=== PATIENT | female | born 1985 | race Caucasian/White ===

== ENCOUNTER 2017-05-13 22:48 | Emergency (ER) | payer BC, OTHER ==
[~2017-05-13] VITALS: Ht 167.6 cm; Wt 99.8 kg
--- NOTE | 2017-05-13 23:03 | PHYS DOC ---
Adult General Chief Complaint Chief Complaint: HYPERTENSION HPI HPI Patient is a 32 year old female who presents with headache, she states this started 2 nights ago is been pretty constant. It is different than her normal headaches. She states on the right side is constant about a 5 out of 10 and occasionally it gets sharp and stabbing. She states she was told she had fluid behind her left ear partially week ago. She feels like it could be sinus congestion and she's been taking Sudafed without any improvement. She's also tried Motrin and Tylenol. She took her blood pressure earlier is 168/119, she denies a history of high blood pressure. She denies any dizziness, nausea, vomiting, neck stiffness, fevers, chills, chest pain, she denies any focal neurological deficits such as weakness in her arms or legs. Review of Systems Review of Systems Constitutional: Denies fever or chills [] Eyes: Denies change in visual acuity, redness, or eye pain [] HENT: Denies nasal congestion or sore throat [] Respiratory: Denies cough or shortness of breath [] Cardiovascular: No additional information not addressed in HPI [] GI: Denies abdominal pain, nausea, vomiting, bloody stools or diarrhea [] : Denies dysuria or hematuria [] Musculoskeletal: Denies back pain or joint pain [] Integument: Denies rash or skin lesions [] Neurologic: Denies headache, focal weakness or sensory changes [] Endocrine: Denies polyuria or polydipsia [] Current Medications Current Medications Current Medications Medications (Trade) Dose Ordered Sig/Luis A Start Time Stop Time Status Last Admin Dose Admin Diphenhydramine HCl (Benadryl) 50 mg 1X ONCE 05/14/17 01:30 05/14/17 01:31 DC 05/14/17 01:26 50 MG Methylprednisolone Sodium Succinate (SOLU-Medrol 125MG VIAL) 125 mg 1X ONCE 05/14/17 02:15 05/14/17 02:16 DC 05/14/17 02:00 125 MG Promethazine HCl 12.5 mg/Sodium Chloride 50.5 ml @ 151.5 mls/ hr PRN Q6HRS PRN 05/14/17 00:00 05/14/17 01:26 151.5 MLS/HR Allergies Allergies Allergies Coded Allergies Type Severity Reaction Last Updated Verified Penicillins Allergy Intermediate Itching 05/14/17 Yes Physical Exam Physical Exam Constitutional: Well developed, well nourished, no acute distress, non-toxic appearance. [] HENT: Normocephalic, atraumatic, bilateral external ears normal, oropharynx moist, no oral exudates, nose normal. [] Eyes: PERRLA, EOMI, conjunctiva normal, no discharge. [] Neck: Normal range of motion, no tenderness, supple, no stridor. [] Cardiovascular:Heart rate regular rhythm, no murmur [] Lungs & Thorax: Bilateral breath sounds clear to auscultation [] Abdomen: Bowel sounds normal, soft, no tenderness, no masses, no pulsatile masses. [] Skin: Warm, dry, no erythema, no rash. [] Back: No tenderness, no CVA tenderness. [] Extremities: No tenderness, no cyanosis, no clubbing, ROM intact, no edema. [] Neurologic: Alert and oriented X 3, normal motor function, normal sensory function, no focal deficits noted. [] Psychologic: Affect normal, judgement normal, mood normal. [] Current Patient Data Vital Signs Vital Signs Date Time Temp Pulse Resp B/P (MAP) Pulse Ox O2 Delivery O2 Flow Rate FiO2 05/13/17 23:32 98.1 85 23 148/88 (108) 98 Room Air 98.1 Lab Values Laboratory Tests Test 05/13/17 23:35 05/14/17 01:25 White Blood Count 12.6 x10^3/uL (4.0-11.0) H Red Blood Count 4.70 x10^6/uL (3.50-5.40) Hemoglobin 12.6 g/dL (12.0-15.5) Hematocrit 38.0 % (36.0-47.0) Mean Corpuscular Volume 81 fL (79-100) Mean Corpuscular Hemoglobin 27 pg (25-35) Mean Corpuscular Hemoglobin Concent 33 g/dL (31-37) Red Cell Distribution Width 14.7 % (11.5-14.5) H Platelet Count 463 x10^3/uL (140-400) H Neutrophils (%) (Auto) 54 % (31-73) Lymphocytes (%) (Auto) 37 % (24-48) Monocytes (%) (Auto) 6 % (0-9) Eosinophils (%) (Auto) 2 % (0-3) Basophils (%) (Auto) 1 % (0-3) Neutrophils # (Auto) 6.8 x10^3uL (1.8-7.7) Lymphocytes # (Auto) 4.7 x10^3/uL (1.0-4.8) Monocytes # (Auto) 0.8 x10^3/uL (0.0-1.1) Eosinophils # (Auto) 0.2 x10^3/uL (0.0-0.7) Basophils # (Auto) 0.1 x10^3/uL (0.0-0.2) Sodium Level 140 mmol/L (136-145) Potassium Level 3.5 mmol/L (3.5-5.1) Chloride Level 104 mmol/L (98-107) Carbon Dioxide Level 26 mmol/L (21-32) Anion Gap 10 (6-14) Blood Urea Nitrogen 10 mg/dL (7-20) Creatinine 0.7 mg/dL (0.6-1.0) Estimated GFR (Cockcroft-Gault) 96.4 Glucose Level 111 mg/dL (70-99) H Calcium Level 9.2 mg/dL (8.5-10.1) Magnesium Level 1.9 mg/dL (1.8-2.4) Total Bilirubin 0.1 mg/dL (0.2-1.0) L Direct Bilirubin < 0.1 mg/dL (0.0-0.2) Aspartate Amino Transferase (AST) 15 U/L (15-37) Alanine Aminotransferase (ALT) 20 U/L (14-59) Alkaline Phosphatase 101 U/L (46-116) SU-Zpm-L-Type Natriuretic Peptide 49 pg/mL (0-124) Total Protein 7.4 g/dL (6.4-8.2) Albumin 3.7 g/dL (3.4-5.0) Lipase 165 U/L (73-393) Thyroid Stimulating Hormone (TSH) 4.113 uIU/mL (0.358-3.74) H Urine Collection Type Unknown Urine Color Yellow Urine Clarity Clear Urine pH 6.0 Urine Specific [place] 1.010 Urine Protein Negative mg/dL (NEG-TRACE) Urine Glucose (UA) Negative mg/dL (NEG) Urine Ketones (Stick) Negative mg/dL (NEG) Urine Blood Large (NEG) Urine Nitrite Negative (NEG) Urine Bilirubin Negative (NEG) Urine Urobilinogen Dipstick 0.2 mg/dL (0.2 mg/dL) Urine Leukocyte Esterase Negative (NEG) Urine RBC 20-40 /HPF (0-2) Urine WBC 1-4 /HPF (0-4) Urine Squamous Epithelial Cells Few /LPF Urine Bacteria 0 /HPF (0-FEW) Urine Mucus Slight /LPF Urine Opiates Screen Neg (NEG) Urine Methadone Screen Neg (NEG) Urine Barbiturates Neg (NEG) Urine Phencyclidine Screen Neg (NEG) Urine Amphetamine/Methamphetamine Neg (NEG) Urine Benzodiazepines Screen Neg (NEG) Urine Cocaine Screen Neg (NEG) Urine Cannabinoids Screen Neg (NEG) Urine Ethyl Alcohol Neg (NEG) Laboratory Tests 05/13/17 23:35 Laboratory Tests 05/13/17 23:35 EKG EKG [] Radiology/Procedures Radiology/Procedures [facility] [address] [place] [address] IMAGING REPORT Signed PATIENT: JOSE FRANKLIN ACCOUNT: [id number] : 1985 LOCATION: ER AGE: 32 SEX: F EXAM STATUS: REG ER ORD. PHYSICIAN: HERSON PERES MD REASON: headache PROCEDURE: CT HEAD WO CONTRAST PQRS Compliance Statement: One or more of the following individualized dose reduction techniques were utilized for this examination: 1. Automated exposure control 2. Adjustment of the mA and/or kV according to patient size 3. Use of iterative reconstruction technique CT HEAD WITHOUT CONTRAST History: headache, Comparison: None. Procedure: Axial images are obtained of the head from the skull base through the vertex without IV contrast. Findings: The ventricles and sulci are normal for the patient's age. No mass-effect, midline shift, hemorrhage, extra-axial fluid collection, or obvious acute infarction is identified. Basilar cisterns are patent. Bone windows demonstrate no acute calvarial abnormality. Small mucous retention cyst or polyp left sphenoid sinus. The other visualized paranasal sinuses are clear. Mastoid air cells are well aerated. IMPRESSION: No acute intracranial abnormality. Electronically signed by: Suman Chapman MD (05/14/2017 12:02 AM) [facility] DICTATED and SIGNED BY: SUMAN CHAPMAN MD DATE: 05/13/17 [id number] CC: HERSON PERES MD; SHOBHA GARCIA ~ View chest x-ray did not show any focal consolidations, bony abnormalities, pneumothorax, as interpreted by me. Impressions: Headache Course & Med Decision Making Course & Med Decision Making Pertinent Labs and Imaging studies reviewed. (See chart for details) Patient was seen for headache and elevated blood pressure today. Her physical exam is completely normal, she does not have any fevers or nuchal rigidity or other concerning symptoms on physical exam to suggest serious pathology. Her vitals here been completely normal. Labs are nonacute. CT scan of the head does not show any acute abnormality's. She received Benadryl and Phenergan IV and it really didn't help her symptoms. She received 125 Solu-Medrol and now she states she starting to feel a little bit better. She's being discharged home. She is to follow-up with neurology and she has a follow-up appointment tomorrow with primary care physician. Return precautions given she is agreeable plan being discharged in stable condition this time. Dragon Disclaimer Dragon Disclaimer This electronic medical record was generated, in whole or in part, using a voice recognition dictation system. Departure Departure Impression: Primary Impression: Headache Referrals: NON,STAFF (PCP) DISHA ABAD MD Patient Instructions: General Headache Without Cause, [id number] Additional Instructions: You were seen today for your headache. CAT scan of your head did not show any acute abnormality's. Your blood work also did not show any acute abnormalities. You received Benadryl and Phenergan and Solu-Medrol. Your being discharged home. If your headache returns you can try Benadryl 25 mg in addition to Phenergan 25 mg every 6 hours when necessary nausea vomiting. Please be sure to get plenty of rest. If your symptoms get worse, you have uncontrolled nausea vomiting, weakness in your arms or legs or other concerns please return back to emergency department. You follow-up with Dr. Abad with neurology regarding your headache. Please call her office schedule appointment. Scripts Promethazine Hcl (PROMETHAZINE HCL) 25 Mg Tablet 1 TAB PO PRN Q6HRS Y for HEADACHE, #20 TAB Prov: HERSON PERES MD 05/14/17 Problem Qualifiers Primary Impression: Headache Headache chronicity pattern: acute headache Intractability: not intractable HERSON PERES MD May 13, 2017 23:03
[2017-05-13 23:41] LABS: BASO # 0.1 x10^3/uL (0.0-0.2); BASO % 1 % (0-3); EOS % 2 % (0-3); HEMOGLOBIN 12.6 g/dL (12.0-15.5); LYMPH # 4.7 x10^3/uL (1.0-4.8); LYMPH % 37 % (24-48); MEAN CORPUSCULAR HEMOGLOBIN 27 pg (25-35); MEAN CORPUSCULAR HGB CONC 33 g/dL (31-37); MEAN CORPUSCULAR VOLUME 81 fL (79-100); MONO % 6 % (0-9); NEUT % 54 % (31-73); PLATELET COUNT 463 x10^3/uL (140-400); RED CELL DISTRIBUTION WIDTH 14.7 % (11.5-14.5); WHITE BLOOD COUNT 12.6 x10^3/uL (4.0-11.0)
[2017-05-13 23:53] LABS: ANION GAP 10 (6-14); BLOOD UREA NITROGEN 10 mg/dL (7-20); CALCIUM 9.2 mg/dL (8.5-10.1); CARBON DIOXIDE 26 mmol/L (21-32); CHLORIDE 104 mmol/L (98-107); CREATININE 0.7 mg/dL (0.6-1.0); GFR 96.4; GLUCOSE 111 mg/dL (70-99); POTASSIUM 3.5 mmol/L (3.5-5.1); SODIUM 140 mmol/L (136-145)
[2017-05-13 23:59] LABS: ALBUMIN 3.7 g/dL (3.4-5.0); ALK PHOS 101 U/L (46-116); ALT (SGPT) 20 U/L (14-59); AST (SGOT) 15 U/L (15-37); DIRECT BILIRUBIN < 0.1 mg/dL (0.0-0.2); MAGNESIUM 1.9 mg/dL (1.8-2.4); TOTAL BILIRUBIN 0.1 mg/dL (0.2-1.0); TOTAL PROTEIN 7.4 g/dL (6.4-8.2)
[2017-05-14] MEDS ORDERED: PROMETHAZINE 12.5 MG in IV NORMAL SALINE 50ML 50 ML IV PRN ×2
--- NOTE | 2017-05-14 00:04 | RAD ---
RS Compliance Statement: One or more of the following individualized dose reduction techniques were utilized for this examination: 1. Automated exposure control 2. Adjustment of the mA and/or kV according to patient size 3. Use of iterative reconstruction technique CT HEAD WITHOUT CONTRAST History: headache, Comparison: None. Procedure: Axial images are obtained of the head from the skull base through the vertex without IV contrast. Findings: The ventricles and sulci are normal for the patient's age. No mass-effect, midline shift, hemorrhage, extra-axial fluid collection, or obvious acute infarction is identified. Basilar cisterns are patent. Bone windows demonstrate no acute calvarial abnormality. Small mucous retention cyst or polyp left sphenoid sinus. The other visualized paranasal sinuses are clear. Mastoid air cells are well aerated. IMPRESSION: No acute intracranial abnormality. Electronically signed by: Suman Chapman MD (05/14/2017 12:02 AM) [facility]
[2017-05-14] MEDS ORDERED: diphenhydrAMINE 50 MG/ML VIAL IVP ONE (01:30)
[2017-05-14 01:35] LABS: BILIRUBIN,URINE NEGATIVE (NEG); GLUCOSE,URINE NEGATIVE (NEG); NITRITE,URINE NEGATIVE (NEG); PROTEIN,URINE NEGATIVE (NEG-TRACE); UROBILINOGEN,URINE 0.2 mg/dL (0.2 mg/dL)
[2017-05-14 01:41] LABS: BARBITURATES NEG (NEG); BENZODIAZEPINES NEG (NEG); CANNABINOIDS NEG (NEG); COCAINE NEG (NEG); METHADONE NEG (NEG); OPIATES NEG (NEG); PHENCYCLIDINE NEG (NEG)
[2017-05-14 01:42] LABS: BACTERIA,URINE 0 /HPF (0-FEW); RBC,URINE 20-40 /HPF (0-2); SQUAMOUS EPITHELIAL CELL,UR FEW /LPF
[2017-05-14] MEDS ORDERED: methylPREDNISolone SOD SUCC PF 125 MG/2 ML VIAL. IV ONE (02:15)
[2017-05-14] MEDS ORDERED: PROM25TA10 PO (02:22)
[2017-05-14 02:35] VITALS: BP 126/75
--- NOTE | 2017-05-14 06:18 | EKG ---
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
--- NOTE | 2017-05-14 07:37 | RAD ---
Exam performed: One view chest. Indication: Hypertension Date of Service: 05/14/2017 1:12 AM Comparison: None available. Single AP upright portable view chest findings: Cardiomediastinal silhouette is within limits of normal. No acute infiltrates, effusion or pneumothorax is detected. The bony structures are normal. Impression: No acute cardiopulmonary process is detected.
== END 2017-05-14 02:40 | disposition home or self-care (01) ==
LOC: ER 22:48
DX: R51 Headache (principal); I10 Essential (primary) hypertension; Z88.0 Allergy status to penicillin
CPT/HCPCS: 36415; 70450; 71010; 80048; 80076; 80307; 81001; 83690; 83735; 83880; 84443; 85025; 93005; 96365; 96375; 99285; J1200; J2550; J2930; G0479

== ENCOUNTER 2017-09-27 09:54 | Emergency (ER) | payer OTHER, BC ==
[2017-09-27] MEDS: IPRATRPIUM/ALBUTEROL 0.5/2.5MG 3 ML NEBU. NEB (10:42)
[2017-09-27 11:14] LABS: D-DIMER 0.33 ug/mlFEU (0.00-0.50)
== END 2017-09-27 12:03 | disposition home or self-care (01) ==
LOC: ER 09:54
DX: J40 Bronchitis, not specified as acute or chronic (principal); E28.2 Polycystic ovarian syndrome; Z90.49 Acquired absence of other specified parts of digestive tract; Z88.0 Allergy status to penicillin
CPT/HCPCS: 36415; 71046; 85379; 94640; 99285-25; J7620

== ENCOUNTER → 2018-09-07 | Outpatient (CLI) | payer OTHER ==
[2017-09-27 11:46] VITALS: BP 114/73
[~2018-09-07] MED LIST: AZIT250T6 PO; PRED50TA PO; PROM25TA10 PO
--- NOTE | 2018-09-07 16:20 | RAD ---
MR of the right knee Indication: Right knee pain laterally for 2 weeks. Comparison: None are available. Technique: The standard multiplanar sequences are obtained. FINDINGS: Artifact: No significant image degradation. Medial meniscus:Intact. Lateral meniscus: Intact. Anterior cruciate ligament: Intact. Posterior cruciate ligament: Intact Medial collateral ligament: Intact. Lateral structures: * Iliotibial band: Intact. * Lateral collateral ligament: Intact. * Biceps femoris tendon: Intact * Popliteus tendon attachment: Intact Extensive mechanism: * Patellar tendon: Intact * Quadriceps tendon: Intact * Retinacular structures: Intact Fluid: Small joint effusion. No significant Wolff's cyst. Intra-articular bodies: None visualized Joint compartments * patellofemoral joint:Intact * medial compartment: Mild chondromalacia of the weightbearing medial femoral condyle. * lateral compartment:Intact Bones: No significant lesion or acute fracture. Soft tissue: Unremarkable Impression: 1. Mild medial femoral condyle chondromalacia. 2. No evidence of meniscal tear or other internal derangement. Electronically signed by: Leon Chirinos MD (09/07/2018 4:16 PM) [facility]
== END | disposition home or self-care (01) ==
LOC: MRI 15:30
PROVIDERS: ATTEND Family Medicine
DX: M94.261 Chondromalacia, right knee (principal)
CPT/HCPCS: 73721

== ENCOUNTER 2019-05-25 07:03 | Day surgery (SDC) | payer OTHER ==
[~2019-05-25] VITALS: Ht 167.6 cm; Wt 100.7 kg
[~2019-05-25 07:03] MED LIST changes: +BUPIVACAINE-EPI 0.25%-1:200000 MPF 30 ML VIAL. INJ ONE; +CETI10TA22 PO; +FLUT9.9S NS; +HYDROmorphone 2 MG/ML VIAL IV PRN; +IBUP200T44 PO; +IV RINGERS,LACTATED 1000ML 1,000 ML IV SCH; +MORPHINE SULFATE 2 MG/ML VIAL. IV PRN; +MULT1TAB52 PO; +ONDANSETRON PF 4 MG/2 ML VIAL. IV PRN; +PROCHLORPERAZINE 10 MG/2 ML VIAL. IV PRN; +TRAM50TA PO; +fentaNYL PF VIAL 100 MCG/2 ML VIAL IV PRN
[2019-05-25] MEDS ORDERED: PROPOFOL 20 ML IV ONE (07:42)
[2019-05-25] MEDS ORDERED: fentaNYL PF VIAL 100 MCG/2 ML VIAL ONE ×2 (07:42→09:36)
[2019-05-25] MEDS ORDERED: ROCURONIUM 50 MG/5 ML VIAL. ONE ×2 (07:42→09:35)
[2019-05-25] MEDS ORDERED: LIDOCAINE 2% PF 5 ML VIAL. ONE (07:42)
[2019-05-25] MEDS ORDERED: SUCCINYLCHOLINE 200 MG/10 ML VIAL. ONE (07:42)
[2019-05-25] MEDS ORDERED: SCOPOLAMINE 1.5MG PATCH. TD ONE ×2 (07:51→08:30)
[2019-05-25] MEDS ORDERED: ACETAMINOPHEN 500 MG TABLET PO ONE ×2 (07:52→08:00)
[2019-05-25] MEDS ORDERED: METHYLENE BLUE 0.5% 10ml AMPULE. ONE (08:08)
[2019-05-25] MEDS ORDERED: CETIRIZINE HCL 10 MG TABLET. PO ONE (08:14)
[2019-05-25] MEDS ORDERED: IBUPROFEN 200 MG TABLET. PO PRN (08:15)
[2019-05-25] MEDS ORDERED: DEXAMETHASONE SOD PHOS 4 MG/ML VIAL ONE ×2 (08:21→08:24)
[2019-05-25] MEDS ORDERED: ONDANSETRON PF 4 MG/2 ML VIAL. ONE (08:24)
[2019-05-25] MEDS ORDERED: FAMOTIDINE 20 MG/2 ML VIAL ONE (08:27)
[2019-05-25] MEDS ORDERED: DESFLURANE 61 TO 120 MINUTES IH ONE (08:28)
[2019-05-25] MEDS ORDERED: diphenhydrAMINE 50 MG/ML VIAL ONE (08:36)
[2019-05-25 08:40] LABS: BASO # 0.1 x10^3/uL (0.0-0.2); BASO % 1 % (0-3); EOS # 0.2 x10^3/uL (0.0-0.7); EOS % 1 % (0-3); HEMATOCRIT 40.5 % (36.0-47.0); HEMOGLOBIN 13.3 g/dL (12.0-15.5); LYMPH # 3.6 x10^3/uL (1.0-4.8); LYMPH % 24 % (24-48); MEAN CORPUSCULAR HEMOGLOBIN 27 pg (25-35); MEAN CORPUSCULAR HGB CONC 33 g/dL (31-37); MEAN CORPUSCULAR VOLUME 82 fL (79-100); MONO # 0.8 x10^3/uL (0.0-1.1); MONO % 6 % (0-9); NEUT # 10.4 x10^3/uL (1.8-7.7); NEUT % 69 % (31-73); PLATELET COUNT 474 x10^3/uL (140-400); RED BLOOD COUNT 4.97 x10^6/uL (3.50-5.40); RED CELL DISTRIBUTION WIDTH 15.5 % (11.5-14.5); WHITE BLOOD COUNT 15.1 x10^3/uL (4.0-11.0)
[2019-05-25] MEDS ORDERED: PHENYLEPHRINE in 0.9% NACL PF 1 MG/10 ML SYRINGE. IV ONE (08:51)
[2019-05-25] MEDS ORDERED: GLYCOPYRROLATE 1 MG/5 ML VIAL. ONE (08:51)
[2019-05-25] MEDS ORDERED: NEOSTIGMINE METHYLSULFATE 5 MG/5 ML SYRINGE. ONE (08:52)
--- NOTE | 2019-05-25 10:22 | PDOC ---
BRIEF OPERATIVE NOTE Date: May 25, 2019 Pre-Op Diagnosis pelvic pain, left ovarian cyst Post-Op Diagnosis same plus bilateral ovarian cysts, adhesions and endometriosis Procedure Performed operative scope, left ovarian cystectomy, drainage of right ovarian cyst, adhesiolysis and vapo of endometriosis Surgeon Dr. Melany Chapa Imaging A[facility] Anesthesiologist Dr. Santiago Anesthesia Type: General Blood Loss 5cc IV Fluid 1L Urine Output 175cc clear via olivo Specimens Obtained left ovarian cyst wall Findings RV fibroid uterus, normal bilateral tubes, bilateral ovarian cysts, right and left sided adhesions, normal appendix, endometriosis in post cul de sac, Rt US ligament and under uterus Complications none Operative Note [id number] MELANY CHAPA MD May 25, 2019 10:22
[2019-05-25] MEDS ORDERED: HYDROcodone/APAP 5/325MG 1 TAB TABLET PO PRN (10:30)
[2019-05-25] MEDS ORDERED: diphenhydrAMINE HCL 25 MG CAPSULE PO PRN (10:30)
[2019-05-25] MEDS ORDERED: MAG HYDROX/ALUMINUM HYD/SIMETH 30 ML ORAL.SUSP PO PRN (10:30)
[2019-05-25] MEDS ORDERED: CALCIUM CARBONATE 500 MG TAB.CHEW PO PRN (10:30)
[2019-05-25] MEDS ORDERED: diphenhydrAMINE 50 MG/ML VIAL IV PRN (10:30)
[2019-05-25] MEDS ORDERED: 0.9 % SODIUM CHLORIDE 10 ML DISP.SYRIN. IV PRN (10:30)
[2019-05-25] MEDS ORDERED: SIMETHICONE 80 MG TAB.CHEW PO PRN (10:30)
[2019-05-25] MEDS ORDERED: NALOXONE 0.4 MG/ML VIAL. IV PRN (10:30)
--- NOTE | 2019-05-25 11:00 | OP ---
DATE OF SURGERY: 05/25/2019 PREOPERATIVE DIAGNOSES: Pelvic pain and known left ovarian cyst. POSTOPERATIVE DIAGNOSES: Pelvic pain and known left ovarian cyst with bilateral ovarian cysts adhesions and endometriosis. PROCEDURES: Operative laparoscopy, left ovarian cystectomy, drainage of right ovarian cyst, adhesiolysis and vaporization of endometriosis. SURGEON: Jarrett Little MD LITERARY AGENT: Sandra Al instructor adjunct surgical technician. ANESTHESIOLOGIST: Alirio Servin MD ANESTHESIA: General. ESTIMATED BLOOD LOSS: 5 mL. URINE OUTPUT: 175 mL clear via Stallings catheter. IV FLUIDS: 1 liter of crystalloid. SPECIMEN REMOVED: Left ovarian cyst wall. FINDINGS: She had a retroverted fibroid uterus, normal bilateral tubes, bilateral ovarian cysts with left greater than right. Right and left-sided adhesions in the abdomen, but the left side went down to the pelvis, to the left tube and ovary, to the IP ligament. Grossly normal appearing appendix. Endometriosis in the posterior cul-de-sac, right uterosacral ligament and under the uterus itself. COMPLICATIONS: None. DESCRIPTION OF PROCEDURE: This patient was taken to the operating room where general anesthesia was placed. The patient was placed in a dorsal lithotomy position in [facility]. The patient's abdomen and vagina were prepped and draped in the normal sterile fashion and a Stallings catheter had been inserted under sterile technique. Upon my arrival, a timeout was performed. Once everyone agreed, a bivalve speculum was placed in the patient's vagina. A single-tooth tenaculum was used to grasp the anterior lip of the cervix. The Valtchev uterine manipulator was placed through the endocervical os, locked on the single tooth tenaculum and the bivalve speculum was then removed. Top gloves were discarded and changed. Attention was then turned to the abdomen where a small infraumbilical skin incision was made with the scalpel. A curved Milka was used to dissect through the subcuticular layer to the fascia. The 5 mm Visiport was used to directly enter the abdominal cavity. Opening patient pressure was 5 mmHg. Carbon dioxide gas was used to then appropriately insufflate the abdominal cavity to maintain a pressure of 15 mmHg. Later during operating, as she had a heavy abdominal wall, it was turned up to 17 just to get adequate visualization. Once this was in, she was placed in Trendelenburg position. A 5 mm suprapubic port was placed next under direct visualization and allowed to look around. Once it was seen, we were going to have to do adhesiolysis and vaporization of endometriosis. A right lower quadrant port was also placed under direct visualization after finding an area clear on the inside, which it was clear on the abdominal wall, transilluminating the abdominal wall, making a small incision and then placing a 5 mm trocar under direct visualization. The 4-5 mL of air was placed in the suprapubic port and right lower quadrant port under direct visualization on the trocar cuff. The camera was moved to look at the umbilical port. It was also clear and it was insufflated. At this point, the procedure was begun. First, we elevated the left tube and ovary and worked on this cyst draining the cyst and then I used the LigaSure to cauterize some of the cyst wall and peel it off. This was a complete ovarian cystectomy, passing of tissue for permanent pathology and leaving that when open, but after it was hemostatic and the ovarian cyst wall was completely removed. The right one was just a clear serous cyst and much smaller, so the monopolar tip was used to make a tiny opening in the right side and clear serous straw-colored fluid drained out of this side and it was normal. At this point, adhesiolysis was began on the left side, taking down the descending colon from the sidewall and taking it all the way down. There were several inches that were adhesed from the mid abdominal wall down to the left IP ligament, starting high on the abdominal wall where it was clear and filming, and then using the blunt tip of the [place] or probe to help peel it off the sidewall, but it was taken down and freed up all the way down to the level of the IP ligament on the left side. Left tube and ovary were now good. The left ovary was drained. The left-sided adhesions were taken down. I did find the appendix on the right side, but this involved right near where the appendix was coming out at the junction, so I did not touch the adhesions on the right side at all. There was a little bit of endometriosis the right pelvic sidewall, I did not see any on the left pelvic sidewall, there was some on the right uterosacral ligament and under the uterus along in between the uterosacral ligaments and the posterior cul-de-sac. The right uterosacral ligament, posterior cul-de-sac and under the uterus were cauterized with the monopolar hook, the tip under direct visualization. The bladder looked good. The tubes looked good and the uterus just had a posterior fibroid, but it was not pedunculated. It was under the serosal surface of the uterus just sticking out posteriorly, but it was retroverted fibroid uterus. At this point, copious irrigation revealed hemostasis. The left ovarian cystectomy was not bleeding. The adhesions on the left were not bleeding. All the endometrial implants looked good. The right upper quadrant was okay. The pericolic gutters were clear. So, the gas was taken out of all 3 trocars. The suprapubic port and right lower quadrant ports were removed under direct visualization. These were hemostatic. Gas was released from the umbilical port. All 4 port sites were closed with 4-0 nylon at the skin and injected with 10 mL of local. The bottom instruments were removed and there was no significant vaginal bleeding either and my procedure was ended. She was then awakened from anesthesia and is being brought to recovery room in stable condition. JARRETT LITTLE MD DR: RUSS/brittnee JOB#: [id number] / [id number]
[2019-05-25 12:38] VITALS: BP 132/76
--- NOTE | 2019-05-29 09:06 | PATHOLOGY ---
[facility] Accession Number: [id number] . 01 Material submitted: . ovary - LEFT OVARIAN CYST WALL. Modifiers: left . 01 Clinical history: . Left ovary and cyst, pelvic pain . 02 Diagnosis: "Left ovarian cyst wall": - Features of both cystic follicle and corpus luteum cyst. - Focal hemosiderin deposition is present. - Negative for malignancy. (MAP:[place]; 05/26/2019) [facility] 05/26/2019 1551 Local . 02 Electronically signed: . Leon Talbert MD, Pathologist NPI- [id number] . 01 Gross description: . The specimen is received in formalin, labeled "Jazmyne Plaza, left ovary and cyst wall", are multiple irregular segments of bagley-brown to white rubbery membranous tissues consistent with a disrupted cyst measuring 2.5 x 2.0 x 0.8 cm in aggregate. The larger segments are serially sectioned. No discrete ovarian parenchyma is identified. The specimen is entirely submitted in A1-A2. ([facility]; 05/25/2019) [facility] 05/25/20192054 Local . 02 Pathologist provided ICD-10: R10.2 . 02 CPT . 433988 Specimen Comment: A courtesy copy of this report has been sent to Specimen Comment: [phone], . Specimen Comment: Report sent to / DR HAMILTON Specimen Comment: A duplicate report has been generated due to demographic updates. Performed at: 01 [facility] [address], [place] [id number] MD Joselo Jones MD Phone: [phone] Performed at: 02 [facility] [address], [place] [id number] MD Milo Baeza MD Phone: [phone]
== END 2019-05-25 12:42 | disposition home or self-care (01) ==
LOC: SURG 07:03
PROVIDERS: ATTEND Obstetrics & Gynecology
DX: N83.12 Corpus luteum cyst of left ovary (principal); N83.02 Follicular cyst of left ovary; N80.1 Endometriosis of ovary; N83.201 Unspecified ovarian cyst, right side; N73.6 Female pelvic peritoneal adhesions (postinfective)
CPT/HCPCS: 36415; 58662; 81025; 85025; A7015; J0330; J1100; J1200; J2001; J2370; J2405; J2704; J2710; J3010; J3490; J7030; J7120; J0696

== ENCOUNTER → 2020-04-01 | Outpatient (CLI) | payer OTHER ==
[~2020-04-01] MED LIST changes: -BUPIVACAINE-EPI 0.25%-1:200000 MPF 30 ML VIAL. INJ ONE; -CETI10TA22 PO; +CETI10TA24 PO; -HYDROmorphone 2 MG/ML VIAL IV PRN; -IV RINGERS,LACTATED 1000ML 1,000 ML IV SCH; -MORPHINE SULFATE 2 MG/ML VIAL. IV PRN; +MULT-445 PO; -MULT1TAB52 PO; -ONDANSETRON PF 4 MG/2 ML VIAL. IV PRN; -PROCHLORPERAZINE 10 MG/2 ML VIAL. IV PRN; -fentaNYL PF VIAL 100 MCG/2 ML VIAL IV PRN
[2020-04-01 13:43] LABS: BASO # 0.1 x10^3/uL (0.0-0.2); BASO % 1 % (0-3); EOS # 0.2 x10^3/uL (0.0-0.7); EOS % 1 % (0-3); HEMATOCRIT 37.5 % (36.0-47.0); HEMOGLOBIN 12.6 g/dL (12.0-15.5); LYMPH # 2.6 x10^3/uL (1.0-4.8); LYMPH % 22 % (24-48); MEAN CORPUSCULAR HEMOGLOBIN 26 pg (25-35); MEAN CORPUSCULAR HGB CONC 34 g/dL (31-37); MEAN CORPUSCULAR VOLUME 79 fL (79-100); MONO # 0.5 x10^3/uL (0.0-1.1); MONO % 4 % (0-9); NEUT # 8.3 x10^3/uL (1.8-7.7); NEUT % 72 % (31-73); PLATELET COUNT 542 x10^3/uL (140-400); RED BLOOD COUNT 4.78 x10^6/uL (3.50-5.40); WHITE BLOOD COUNT 11.7 x10^3/uL (4.0-11.0)
[2020-04-02 00:07] LABS: FSH 4.2 mIU/mL (.)
[2020-04-02 01:08] LABS: PROGESTERONE <0.1 ng/mL (.)
[2020-04-02 17:10] LABS: ESTRADIOL LEVEL 37.9 pg/mL (.)
[2020-04-03 02:09] LABS: INSULIN LEVEL 146.5 uIU/mL (2.6-24.9)
== END | disposition home or self-care (01) ==
LOC: LAB 10:41
PROVIDERS: ATTEND Nurse Practitioner Women's Health
DX: E28.2 Polycystic ovarian syndrome (principal)
CPT/HCPCS: 36415; 82627; 82670; 83001; 83002; 83036; 83525; 84144; 84402; 84403; 85025

== ENCOUNTER → 2021-04-10 | Outpatient (CLI) | payer OTHER ==
[~2021-04-10] MED LIST changes: -CETI10TA24 PO; +CETI10TA74 PO
== END ==
LOC: LAB 08:50
PROVIDERS: ATTEND Internal Medicine Pulmonary Disease
DX: R05 Cough (principal); R51.9 Headache, unspecified; M79.10 Myalgia, unspecified site; R09.81 Nasal congestion; Z20.822 Contact with and (suspected) exposure to COVID-19
CPT/HCPCS: U0003; U0005

== ENCOUNTER 2021-05-05 11:01 | Emergency (ER) | payer OTHER ==
[~2021-05-05] VITALS: Ht 167.6 cm; Wt 90.0 kg
[2021-05-05] MEDS ORDERED: IV NORMAL SALINE 1000ML BAG 1,000 ML IV ONE (11:45)
[2021-05-05 11:55] LABS: BILIRUBIN,URINE NEGATIVE (NEG); CLARITY,URINE CLEAR; COLOR,URINE YELLOW; NITRITE,URINE NEGATIVE (NEG); PH,URINE 6.5 (<5.0-8.0); PROTEIN,URINE NEGATIVE (NEG-TRACE); UROBILINOGEN,URINE 0.2 mg/dL (0.2 mg/dL)
[2021-05-05 11:58] LABS: BASO # 0.1 x10^3/uL (0.0-0.2); BASO % 1 % (0-3); EOS # 0.2 x10^3/uL (0.0-0.7); EOS % 2 % (0-3); HEMATOCRIT 33.8 % (36.0-47.0); HEMOGLOBIN 11.2 g/dL (12.0-15.5); LYMPH # 2.7 x10^3/uL (1.0-4.8); LYMPH % 23 % (24-48); MEAN CORPUSCULAR HEMOGLOBIN 26 pg (25-35); MEAN CORPUSCULAR HGB CONC 33 g/dL (31-37); MEAN CORPUSCULAR VOLUME 80 fL (79-100); MONO # 0.7 x10^3/uL (0.0-1.1); MONO % 6 % (0-9); NEUT # 7.9 x10^3/uL (1.8-7.7); NEUT % 69 % (31-73); PLATELET COUNT 503 x10^3/uL (140-400); RED BLOOD COUNT 4.25 x10^6/uL (3.50-5.40); RED CELL DISTRIBUTION WIDTH 16.2 % (11.5-14.5); WHITE BLOOD COUNT 11.5 x10^3/uL (4.0-11.0)
--- NOTE | 2021-05-05 12:00 | PHYS DOC ---
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 Patient reports she tried to take an [id number] dizziness medication in which she noticed her dizziness started but become worse. Patient denies any nausea vomiting or visual disturbances. States the room was not spinning, she does feels dizzy in her head. Denies chest pain, chest palpitations, shortness of breath, nasal or chest congestion. Patient denies recent fever or chills. Patient reports she has completed the COVID-19 virus vaccine series and does not believe she has a COVID-19 virus today. Patient reports her last menstrual cycle 4 days ago, reports a history of PCOS with uterine fibroids stating that her periods are usually heavy. Patient reports taking spironolactone, metoprolol, Metformin for PCOS, aspirin, vitamin C. Patient denies any other physical complaints or physical concerns. (SALAS CALABRESE APRN) Review of Systems: Review of Systems: 14 body systems of review of systems have been reviewed. See HPI for pertinent positives and negative responses, otherwise all other systems are negative, nonpertinent or noncontributory. Constitutional: Negative except as outlined in HPI above. Skin: Negative except as outlined in HPI above. Eyes: Negative except as outlined in HPI above. HENT: Negative except as outlined in HPI above. Respiratory: Negative except as outlined in HPI above. Cardiovascular: Negative except as outlined in HPI above. GI: Negative except as outlined in HPI above. : Negative except as outlined in HPI above. Musculoskeletal: Negative except as outlined in HPI above. Integument: Negative except as outlined in HPI above. Neurologic: Negative except as outlined in HPI above. Endocrine: Negative except as outlined in HPI above. Lymphatic: Negative except as outlined in HPI above. Psychiatric: Negative except as outlined in HPI above. (SALAS CALABRESE APRN) Heart Score: C/O Chest Pain: No Risk Factors: Risk Factors: DM, Current or recent (<one month) smoker, HTN, HLP, family history of CAD, obesity. Risk Scores: Score 0 - 3: 2.5% MACE over next 6 weeks - Discharge Home Score 4 - 6: 20.3% MACE over next 6 weeks - Admit for Clinical Observation Score 7 - 10: 72.7% MACE over next 6 weeks - Early Invasive Strategies (SALAS CALABRESE APRN) Current Medications: Current Medications Medications (Trade) Dose Ordered Sig/Luis A Start Time Stop Time Status Last Admin Dose Admin Sodium Chloride 1,000 ml @ 1,000 mls/hr 1X ONCE 05/05/21 11:45 05/05/21 12:44 05/05/21 11:58 1,000 MLS/HR (SALAS CALABRESE APRN) Allergies: Allergies: Allergies Coded Allergies Type Severity Reaction Last Updated Verified Penicillins Allergy Intermediate Itching/Hives (Took Keflex in the past & no reaction). 05/25/19 Yes lisinopril Adverse Reaction Intermediate COUGH 05/05/21 Yes (SALAS CALABRESE APRN) Physical Exam: PE: Constitutional: Well developed, well nourished, no acute distress, non-toxic appearance. 36-year-old female in no apparent distress. HENT: Normocephalic, atraumatic. No lymphadenopathy of the head or neck appreciated. Eyes: Conjunctiva normal, no discharge. No nystagmus. No photophobia. Neck: Normal range of motion, no stridor. Cardiovascular: No cyanosis appreciated, distal cap refill less than 2 seconds. Heart sounds S1-S2 to auscultation. Lungs & Thorax: Patient is in no respiratory distress, no audible adventitious lung sounds appreciated. Expiratory wheeze right lower lobe base otherwise no adventitious lung sounds appreciated. Abdomen: Nontender, no abnormalities noted. Skin: Warm, dry, no erythema, no rash. Back: No tenderness, no deformities. Extremities: No tenderness, no cyanosis, no clubbing, ROM intact, no edema. [] Neurologic: Alert and oriented X 3, normal motor function, normal sensory function, no focal deficits noted. [place] negative. Psychologic: Affect normal, judgement normal, mood normal. (SALAS CALABRESE APRN) Current Patient Data: Labs: Laboratory Tests Test 05/05/21 11:37 POC Urine HCG, Qualitative Hcg negative (Negative) Vital Signs: Vital Signs Date Time Temp Pulse Resp B/P (MAP) Pulse Ox O2 Delivery O2 Flow Rate FiO2 05/05/21 11:22 98.8 85 16 150/73 (94) 96 Room Air 98.8 (SALAS CALABRESE APRN) EKG: EKG: EKG performed at 1140 by ED nursing staff shows a normal sinus rhythm without ectopy heart rate 75 bpm, SC interval 0.154, QTc interval 0.400, no acute STEMI, no ACS, no acute ischemia appreciated, EKG interpreted by ED attending physician Dr. Beyer. (SALAS CALABRESE APRN) Radiology/Procedures: Radiology/Procedures: PATIENT: JOSE FRANKLIN MACCOUNT: [id number] : 1985 LOCATION: ER AGE: 36 SEX: F EXAM STATUS: REG ER ORD. PHYSICIAN: SALAS CALABRESE APRN REASON: Dizziness PROCEDURE: CHEST AP ONLY EXAM: Chest, single view. HISTORY: Dizziness. COMPARISON: None. FINDINGS: A frontal view of the chest is obtained. There is no infiltrate, pleural effusion or pneumothorax. The heart is normal in size. IMPRESSION: No acute pulmonary finding. PROCEDURE: CT HEAD WO CONTRAST CT HEAD/BRAIN WO History: Dizziness. Comparison: None. Technique: Noncontrast CT imaging was performed of the head. Findings: No intracranial hemorrhage. No mass effect. No hydrocephalus. No evidence of acute territorial infarction. Imaged orbits are unremarkable. Imaged paranasal sinuses and mastoid air cells are clear. The scalp and calvarium are unremarkable. Impression: 1. No acute intracranial abnormality. ----- Exposure: One or more of the following individualized dose reduction techniques were utilized for this examination: 1. Automated exposure control 2. Adjustment of the mA and/or kV according to patient size 3. Use of iterative reconstruction technique. Electronically signed by: Sanjeev Ibarra MD (05/05/2021 1:41 PM) [id number] (SALAS CALABRESE APRN) Course & Med Decision Making: Course & Med Decision Making Pertinent Labs and Imaging studies reviewed. (See chart for details) 36-year-old female, vital signs reviewed, presents emergency department concerning dizziness while at work. Physical presentation is unremarkable. Patient does reveal she has been working 50+ hours per week for the past 5 weeks. ED work-up ordered urinalysis assay, COVID-19 testing, cardiorespiratory work-up, CT head without. Upon reevaluation of the patient, patient sleeping in room. Denies any changes in symptoms. CT head negative for acute process, cardiorespiratory work-up negative for acute process. The patient's urine was not infected. The patient is not . Patient refused nebulized breathing treatment stating it would most likely make her feel worse. Patient reports she has a history of reactive airway disease and is not concerned about the wheeze in her right lower lobe. Patient vital signs remained within normal limits, patient's work-up was unremar kable, discussed findings with patient who is comfortable going home. Will give work excuse for tomorrow. Patient is amenable to discharge planning. Discussed with the patient all findings and diagnostic testing as well as the need to follow-up with their primary care provider for further evaluation and treatment or return to the ED if any new or worsening symptoms. Strict return precautions were also discussed at length, the patient voiced understanding and agreement with the discharge planning. The patient was nontoxic in appearance, in no apparent distress, and hemodynamically stable at the time of disposition. (SALAS CALABRESE APRN) Course & Med Decision Making I have reviewed and agree with all pertinent clinical information above including history, exam, and recommendations. Michelle Beyer DO (MICHELLE BEYER DO) Wilfredo Disclaimer: Wilfredo Disclaimer: This electronic medical record was generated, in whole or in part, using a voice recognition dictation system. (SALAS CALABRESE APRN) Departure Departure Impression: Primary Impression: Dizziness, nonspecific Disposition: 01 HOME / SELF CARE / HOMELESS Condition: GOOD Referrals: ELENITA AUGUSTE MD (PCP) Patient Instructions: Dizziness Additional Instructions: You were seen today in the emergency department for dizziness while at work. An extensive cardiorespiratory work-up was performed along with a CT of your head, your physical examination and work-up is reassuring, your lab work and CT and x-ray studies were within normal limits. As we discussed, please go home and get some rest I am giving you a work excuse for tomorrow, please take this time to recover. Also please follow-up with your primary care physician Dr. Auguste for ongoing dizziness problems. Please return to the emergency department for worsening symptoms or other concerns. Thank you for visiting our Emergency Department. It was a pleasure taking care of you today in the emergency department and we appreciate you trusting us with your care. If any additional problems come up don't hesitate to return to visit us. Please follow up with your primary care provider so they can plan additional care if needed and know about the problem that you had. If symptoms worsen come back to the Emergency Department. Any concerning symptoms that start such as chest pain, shortness of air, weakness or numbness on one side of the body, running high fevers or any other concerning symptoms return to the ER. You have been tested for or diagnosed with COVID-19. It is an infection caused by a new type of coronavirus. COVID-19 will cause cold-like or mild flu symptoms in most. It can cause more severe symptoms like problems breathing in some. There is no treatment for COVID-19. The body will clear the infection over time. Self-care will help to ease discomfort. Steps to Take: Self-Care Rest as needed. Healthy habits may help you feel better. Steps include: Choose healthy foods including fruits and vegetables. Drink water throughout the day. Get plenty of sleep each night. If you smoke, try to quit. It may ease breathing. Avoid alcohol. Keep Others Healthy The virus can spread to others. Droplets are released every time you sneeze or cough. The droplets can get into the mouth, nose, or eyes of people near you and lead to infection. To lower the chances of spreading COVID-19 to others: Stay at home until your doctor has said it is safe to leave. If you tested positive this will mean staying isolated until both of the following are true: At least 7 days have passed since the start of illness. You are free of fever for at least 72 hours without the use of medicine. During this time: - Avoid public areas, events, or transportation. Do not return to work or school until your doctor has said it is safe to do so. - Call ahead if you need to go to a medical center. Let them know you may have COVID-19. It will help them guide you where to go. They may also ask you to wear a facemask when you come to the office. - If you call for emergency medical services, let them know you may have COVID- 19. While at home: - Try to avoid close contact with others. Stay about 6 feet away. - If possible, spend most of your time in a separate room from others. - Use a face mask if you will be in close contact with others such as sharing a room or vehicle. - Have someone wipe down common surfaces in the home. Use household clinical phlebotomist every day on areas like doorknobs, counters, or sinks. - Cough or sneeze into a tissue. Throw the tissue away right after use. If a tissue is not available, cough or sneeze into your elbow. - Wash your hands often. Wash them after sneezing or coughing. Use soap and water and wash for at least 20 seconds. Alcohol based hand laboratory equipment cleaner can be used if soap and water is not available. - Do not prepare food for others. Avoid sharing personal items like forks, spoons, or toothbrushes. - Avoid close contact with pets while you are sick. There is no evidence of the virus passing to pets. This is a safety step until more is known about this virus. Isolation can be frustrating. Social interaction can help. Keep in touch with friends and family through phone and tech options. You can still interact with others in your home, just keep a safe distance of about 6 feet. Follow-up: Your doctors office will check in with you to see if there are any changes in your health. You may be asked to keep track of symptoms to share with them. They will also let you know when you are clear to be in public again. Problems to Look Out For: Contact your doctor if your recovery is not going as you expect. Get emergency care if you have problems such as: - Trouble breathing - Nonstop chest pain or pressure - Changes in awareness, confusion, or problems waking - Lips or face have bluish color - Worsening of symptoms If you think you have an emergency, call for emergency medical services right away. As taken from [facility] SALAS CALABRESE APRN May 05, 2021 12:00 MICHELLE BEYER DO May 05, 2021 16:28
--- NOTE | 2021-05-05 12:02 | RAD ---
EXAM: Chest, single view. HISTORY: Dizziness. COMPARISON: None. FINDINGS: A frontal view of the chest is obtained. There is no infiltrate, pleural effusion or pneumo thorax. The heart is normal in size. IMPRESSION: No acute pulmonary finding. Electronically signed by: Irasema Keys MD (05/05/2021 11:59 AM) [id number]
[2021-05-05 12:05] LABS: BACTERIA,URINE 0 /HPF (0-FEW); RBC,URINE 0 /HPF (0-2); WBC,URINE 0 /HPF (0-4)
[2021-05-05 12:12] LABS: CALCIUM 9.4 mg/dL (8.5-10.1); CREATININE 0.7 mg/dL (0.6-1.0); GFR 94.2; POTASSIUM 4.1 mmol/L (3.5-5.1)
[2021-05-05] MEDS ORDERED: IPRATRPIUM/ALBUTEROL 0.5/2.5MG 3 ML NEBU. NEB ONE (12:15)
[2021-05-05 12:18] LABS: ALBUMIN 3.3 g/dL (3.4-5.0); ALBUMIN/GLOBULIN RATIO 0.9 (1.0-1.7); TOTAL BILIRUBIN 0.1 mg/dL (0.2-1.0); TOTAL PROTEIN 6.9 g/dL (6.4-8.2)
--- NOTE | 2021-05-05 12:39 | EKG ---
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
--- NOTE | 2021-05-05 13:43 | RAD ---
CT HEAD/BRAIN WO History: Dizziness. Comparison: None. Technique: Noncontrast CT imaging was performed of the head. Findings: No intracranial hemorrhage. No mass effect. No hydrocephalus. No evidence of acute territorial infar ction. Imaged orbits are unremarkable. Imaged paranasal sinuses and mastoid air cells are clear. The scalp a nd calvarium are unremarkable. Impression: 1. No acute intracranial abnormality. ----- Exposure: One or more of the following individualized dose reduction techniques were utilized for thi s examination: 1. Automated exposure control 2. Adjustment of the mA and/or kV according to patient size 3. Use of iterative reconstruction technique. Electronically signed by: Sanjeev Ibarra MD (05/05/2021 1:41 PM) [id number]
[2021-05-05 15:55] VITALS: BP 126/75
--- NOTE | 2021-05-06 17:56 | NUR ---
IP: Attempted to contact pt concerning covid results. No answer, left a voicemail to return the call.
--- NOTE | 2021-05-06 18:28 | NUR ---
IP: Pt returned my call. Informed her of the negative covid test. Pt verbalized understanding.
== END 2021-05-05 16:04 | disposition home or self-care (01) ==
LOC: ER 11:01
DX: R42 Dizziness and giddiness (principal); Z20.822 Contact with and (suspected) exposure to COVID-19; Z87.891 Personal history of nicotine dependence; Z88.0 Allergy status to penicillin; Z88.6 Allergy status to analgesic agent
CPT/HCPCS: 36415; 70450; 71045; 80053; 81001; 81025; 82553; 84484; 85025; 87426; 93005; 96360; 99285; J7030; U0003; U0005